=== PATIENT | male | born 1985 | race Caucasian/White ===

== ENCOUNTER 2018-05-06 19:36 | Emergency (ER) | payer OTHER, SELFPAY ==
[2018-05-06] VITALS (38 sets, daily range): BP systolic 108–142; BP diastolic 60–86; PULSE 72–107; RESP 11–22; TEMP 36.5; O2SAT 90–99
--- NOTE | 2018-05-06 19:54 | DI.COMBO_ITS ---
SYMPTOM/DIAGNOSIS: FELL FROM 25 FEET, RT SIDED PAIN, TRAUMA NONCONTRAST HEAD CT: No priors for comparison. There is a normal burciaga white matter differentiation. The ventricles are intact. The basilar cisterns are patent. There is no acute midline shift or mass effect. No intracranial hemorrhage or infarct is seen. There is a mucus retention cyst or polyp in the left maxillary sinus. The remaining visualized paranasal sinuses are clear. The mastoid air cells are well pneumatized. The calvarium is intact. IMPRESSION: No acute intracranial process. CERVICAL SPINE CT: Multiple contiguous axial images of the cervical spine were obtained. Sagittal and coronal reformatted images were evaluated on the Siemens work station. There is normal alignment of the cervical spine. No acute fractures or subluxations are seen. The soft tissues are unremarkable. The visualized lung apices are clear. IMPRESSION: No acute fracture or subluxation in the cervical spine. CHEST/ABDOMEN AND PELVIC CT: CT scan of the abdomen and pelvis was performed following the uneventful administration of intravenous contrast material. There are no priors for comparison. The liver, spleen, pancreas, gallbladder, bile ducts, adrenal glands, kidneys, ureters and bladder are unremarkable. The reproductive organs are unremarkable. The bowel is unremarkable. The aorta is of normal caliber. No significant abdominal or pelvic adenopathy, ascites or pneumoperitoneum is present. No acute fracture is seen. There is subcutaneous edema in the soft tissues of the right lateral pelvis. IMPRESSION: No evidence of intra-abdominal or pelvic organ injury or fracture. Mild subcutaneous edema adjacent to the right pelvis. CT scan of the chest was performed. The thoracic aorta is normal in caliber. Heart size is within normal limits. No significant pericardial effusion is present. No significant mediastinal or hilar adenopathy is seen. No pleural effusion or pneumothorax is identified. Mild dependent atelectatic changes are seen in the lungs. No focal consolidating infiltrate is seen. The tracheobronchial tree is unremarkable. No displaced fractures are identified. IMPRESSION: No acute thoracic injury. RIGHT WRIST: Three views. There is a comminuted, intra-articular fracture involving the distal right radius. The fracture begins in the proximal metadiaphyseal region and extends into the radiocarpal joint. There is impaction of the fracture noted with mild displacement. There is a comminuted displaced fracture involving the ulnar styloid process. Soft tissue swelling is seen about the wrist. IMPRESSION: Comminuted fractures involving the distal right radius and ulna as described.
--- NOTE | 2018-05-06 19:57 | W.ED.GENAD ---
Discharge Plan Disposition Patient Disposition: HOME Condition: Fair Discharge Details Chief Complaint: Trauma Clinical Impression: Closed fracture distal radius and ulna, Multiple contusions ED Provider: Nga Reardon Home Meds and New Rx's Prescriptions: New naloxone [Narcan] 4 mg/actuation spray,non-aerosol 1 spray SRINIVASA ONCE PRN (Reason: opioid overdose) Qty: 2 RF: 0 No Action ibuprofen [Advil] 200 MG tablet 400 mg PRN PRNRF: 0 ibuprofen 800 mg Tablet 800 mg PO TID RF: 0 oxycodone-acetaminophen [Percocet] 5-325 mg Tablet 1 tab PO Q6H RF: 0 Discharge Instructions Instructions: Wrist Fracture in Adults (ED), Contusion in Adults (ED) Additional Instructions: Encourage rest, ice, elevation. You may use 1000 mg of Tylenol every 6 hours as needed, no more than 4000 mg daily. You may augment this with 600 mg of ibuprofen every 6 hours. Please take oxycodone as prescribed. Keep this in a safe place. Encourage hydration. Gentle stretching and frequent ambulation up with contusions and muscle tightness. Please keep splint on until evaluated by orthopedics. Please call orthopedics Tuesday morning to schedule follow-up appointment. If you develop any new or worsening symptoms please seek care urgently once again Referrals: Yung Tom MD [ [facility] STAFF PHYSICIAN] - ([phone]) Discharge Data Discharge Date/Time-TO BE ENTERED AT DEPARTURE: 05/07/18 00:44 Medical Decision Making Patient a 32-year-old male presenting today with chief complaint of trauma. Reports that approximately 3 hours prior to arrival he was working in a tree. States that he was cutting trees at his home. The first 3 that he had cut got hung up on another reports that he was then in the tree trying to free it when the tree released and he fell approximately 25 feet with a tree on the ground. Landed primarily on the right side. No loss conscious. Denies any headache. Denies any visual changes. Is endorsing pain, lightheadedness chest, abdomen and pelvis. Has a notable ecchymosis and abrasion to the right side of his hip, abdomen and lateral aspect of the right knee. Patient also has deformity to the right wrist reports he has been unable to move the area. Denies any altered sensation. Denies any pain in his neck. No pain in his back. On exam, patient is exquisitely tender on the abdomen and right lateral side of the chest wall. I am concerned for possible intra-abdominal and intrathoracic trauma. Patient will immediately go to CT. Patient will be given fentanyl to help with discomfort. X-ray of the patient's right wrist is significant for) acute, comminuted fracture distal right radial epiphysis and distal diaphyseal region. Fracture extends into the right radiocarpal angulation. Closed, acute, fracture of the right ulnar styloid. Right wrist soft tissue swelling noted. CT of the patient's head reviewed by radiologist. No hemorrhage. No significant white matter disease. No edema. No ventriculomegaly. No acute fracture. Left inferior maxillary sinus retention cyst. Mastoid air cells are normal. CT of the cervical spine reviewed by radiologist. No acute fracture or subluxation. No spinal stenosis or neuroforaminal narrowing. Soft tissues are unremarkable. Bones are normal CT of the chest reviewed by radiologist. Advised lungs are normal no consolidation, no masses. Pleural space is normal with no pneumothorax or pleural effusion. Heart is normal with no cardiomegaly or pericardial effusion. No aortic aneurysm. Lymph nodes are normal no murmurs lymph nodes. No acute fracture. Soft tissue unremarkable CT of the patient's abdomen and pelvis reviewed by radiology. Liver is normal no mass. Gallbladder is normal no calcified stones or ductal dilation. No ductal dilation of the pancreas, pancreas appears normal. Spleen appears normal no splenomegaly. Adrenals normal no mass. Kidneys and ureters are normal with no hydronephrosis. Stomach and bowel normal no obstruction, no mucosal thickening. Appendix is normal no appendicitis. Bladder and reproductive unremarkable as visualized. Intraperitoneal space normal with no free air or significant fluid collection. Bones and joints are normal with no acute fracture. Lateral right pelvic subcutaneous edema. Small fat-containing umbilical hernia. Sutures normal no abdominal aortic aneurysm. Lymph nodes are normal no enlarged lymph nodes Laboratory evaluation is notable for leukocytosis of 14. This likely associated with acute trauma. Discussed finding with the patient. We discussed fracture in depth. I advised that this will likely need surgical consultation. We will splint this tonight. Encourage rest, ice, elevation. No opening the skin at this point. Splint was placed with myself with plaster. Patient tolerated this well. He remains neurovascularly intact Patient's remaining areas of trauma seem consistent with abrasions and contusions. I did encourage deep breathing as the patient does have contusions of the chest wall. Advised heat or ice to affected areas. I encouraged gentle stretching and gentle ambulation. Advise follow-up with orthopedics, he will contact them tomorrow to schedule follow-up appointment. Patient was placed on the fracture list. Advised Tylenol and/or ibuprofen as needed for discomfort. Patient will also be prescribed oxycodone to help with his acute discomfort. We did discuss the risk/benefits of this medication. In particular, as the patient has multiple children advised to keep this in a safe place. Patient did sign a narcotic form. Given the number of medications I am prescribing, will also prescribe Narcan. We discussed new/worsening symptoms when to seek care urgently once again. All of his questions and concerns were addressed and he is in agreement this HPI General Mode of arrival: wheelchair. Date/Time Provider Initiated Documentation: 05/06/18 19:53. Limitations to Documentation: no limitations. Information obtained by: patient. History of Present Illness 32 year old M presents to the emergency department with the chief complaint of right sided pain after fall, described as severe, with intensity rated at 10. Quality is described as stabbing and aching, and is localized to the chest, back, abdomen, pelvis, right and upper extremity. Patient started experiencing this minute(s) and it has been constant. No relieving factors improve symptom(s), Movement worsens symptoms . Patient notes denies chest pain, cough, fever/chills, headaches, malaise, nausea/vomiting, shortness of breath, syncope and weakness. Patient did receive the following treatments prior to arrival, none Related Data Home Medications Medication Instructions Recorded Confirmed ibuprofen [Advil] 400 mg PRN PRN 01/20/15 05/25/18 naloxone [Narcan] 1 spray SRINIVASA ONCE PRN #2 each 05/06/18 05/25/18 ibuprofen 800 mg PO TID 05/11/18 05/25/18 oxycodone-acetaminophen [Percocet] 1 tab PO Q6H 05/11/18 05/25/18 Previous Rx's Medication Instructions Recorded naloxone [Narcan] 1 spray SRINIVASA ONCE PRN #2 each 05/06/18 Allergies Allergy/AdvReac Type Severity Reaction Status Date / Time No Known Allergies Allergy Unverified 05/25/18 09:39 Review of Systems Constitutional Reports as per HPI, Reports body ache(s), Denies chills, Denies fever(s), Denies frequent falls, Denies headache(s) and Reports weakness (RUE) Eyes Denies change in vision and Denies diplopia ENT Denies headache(s) Cardiovascular Denies syncope, Denies palpitations and Denies dyspnea Respiratory Denies cough, Denies dyspnea, Denies stridor and Denies wheezing Gastrointestinal Reports abdominal pain (epigastric), Denies nausea and Denies vomiting Genitourinary Denies urinary incontinence Musculoskeletal Reports as per HPI, Denies numbness and Denies tingling Integumentary/Breasts Reports as per HPI Neurologic Denies syncope, Denies frequent falls, Denies headache(s), Denies numbness, Denies tingling, Denies paresthesias and Reports weakness (RUE) Endocrine Denies palpitations Allergic/Immunologic Denies wheezing [facility] Social History Smoking/Tobacco Use Status: Never Exam Const General: cooperative, healthy appearing, uncomfortable (patient is rolled slightly to the left side, splinting the right side), well developed and well groomed Nutritional Appearance: average body habitus and well nourished Orientation: alert, awake and oriented x3 Limitations: mental status not altered and no behavioral limitations [facility] Head: normal to inspection, no palpable skull fracture, normocephalic, atraumatic, no Canales's sign, no raccoon eyes and no scalp tenderness Ears: hearing grossly normal bilaterally, external ears normal and TM's normal bilaterally General nose exam: external nose normal Eyes General: appearance normal, both eyes and all related structures Alignment and Position: alignment normal Periorbital: periorbital findings normal Conjunctivae: conjunctivae normal Pupils: PERRL EOM: EOM intact bilaterally and No nystagmus Direct ophthalmoscopy: normal light reflex Neck Neck: not normal to visual inspection (Patient is currently in c-collar) Chest Chest: abnormal inspection of the chest (Patient has abrasions to the anterior aspect of the right side of his chest as well as associated ecchymosis. No palpable deformity. He does have discomfort over this area with palpation) and no localized rib tenderness Resp Effort & Inspection: normal respiratory effort, able to speak in complete sentences and no respiratory distress Auscultation: clear to auscultation bilaterally, no rales, no rhonchi and no wheezes Cardio Rate: regular rate Rhythm: regular rhythm Heart Sounds: S1 normal and S2 normal GI Inspection: normal to inspection, no abdominal wall ecchymosis, no edema and non-distended Palpation: soft, no hepatosplenomegaly, firm, no guarding, no masses, not rigid and tender in the epigastrum; not in the RUQ and not at McBurney's point Auscultation: normal bowel sounds Back/Spine/Pelvis Back: No no CVA tenderness (collar in place) Thoracic/Lumbar Spine: thoracic and lumbar spine normal to inspection, pain with thoraco-lumbar ROM (this causes right lateral chest wall pain), No paraspinal tenderness, No thoracic spinal tenderness and No lumbar spinal tenderness Pelvis: no pain with anterior-posterior compression, no pain with lateral compression, no buttock ecchymosis and no buttock tenderness Sacrum: no ecchymosis and no erythema Coccyx: no swelling and no tenderness Skin Trauma: abrasion (multiple areas of ecchymosis and abrasio nover the right side of the chest wall, right shoulder. ) Neuro General: alert, awake and oriented x3 Cranial Nerves: CN's II-XI intact bilaterally, PERRL, accommodation normal, EOM intact bilaterally, no nystagmus, facial strength normal, tongue midline, hearing normal, able to elevate shoulders bilaterally and no nystagmus Cognition: normal cognition Speech: speech normal Gait: normal gait Motor: muscle tone normal throughout, strength 5/5 throughout, no pronator drift and no movement abnormalities noted Sensory Exam: no sensory deficits noted Coordination: [id number] test normal, [id number] test normal and rapid alternating movement UE normal Extrem Right upper extremity: wrist (patient has deformity to the right wrist. Skin is ecchymotic. Swelling noted. No snuff box tenderness) Details: tenderness, swelling, abnormal ROM and ecchymosis; ROM abnormal, no unusual warmth and no lacerations Psych Appearance: grossly normal and well kempt Mental Status: mental status grossly normal Speech and Movement: speech and movement normal Mood: congruent mood Affect: normal affect
--- NOTE | 2018-05-06 20:03 | ED.GENADUL_ITS ---
Discharge Plan Disposition Patient Disposition: HOME Condition: Fair Discharge Details Chief Complaint: Trauma Clinical Impression: Closed fracture distal radius and ulna, Multiple contusions ED Provider: Nga Reardon Home Meds and New Rx's Prescriptions: New naloxone [Narcan] 4 mg/actuation spray,non-aerosol 1 spray SRINIVASA ONCE PRN (Reason: opioid overdose) Qty: 2 RF: 0 No Action ibuprofen [Advil] 200 MG tablet 400 mg PRN PRNRF: 0 ibuprofen 800 mg Tablet 800 mg PO TID RF: 0 oxycodone-acetaminophen [Percocet] 5-325 mg Tablet 1 tab PO Q6H RF: 0 Discharge Instructions Instructions: Wrist Fracture in Adults (ED), Contusion in Adults (ED) Additional Instructions: Encourage rest, ice, elevation. You may use 1000 mg of Tylenol every 6 hours as needed, no more than 4000 mg daily. You may augment this with 600 mg of ibuprofen every 6 hours. Please take oxycodone as prescribed. Keep this in a safe place. Encourage hydration. Gentle stretching and frequent ambulation up with contusions and muscle tightness. Please keep splint on until evaluated by orthopedics. Please call orthopedics Tuesday morning to schedule follow-up appointment. If you develop any new or worsening symptoms please seek care urgently once again Referrals: Yung Tom MD [ [facility] STAFF PHYSICIAN] - ([phone]) Discharge Data Discharge Date/Time-TO BE ENTERED AT DEPARTURE: 05/07/18 00:44 Medical Decision Making Patient a 32-year-old male presenting today with chief complaint of trauma. Reports that approximately 3 hours prior to arrival he was working in a tree. States that he was cutting trees at his home. The first 3 that he had cut got hung up on another reports that he was then in the tree trying to free it when the tree released and he fell approximately 25 feet with a tree on the ground. Landed primarily on the right side. No loss conscious. Denies any headache. Denies any visual changes. Is endorsing pain, lightheadedness chest, abdomen and pelvis. Has a notable ecchymosis and abrasion to the right side of his hip , abdomen and lateral aspect of the right knee. Patient also has deformity to the right wrist reports he has been unable to move the area. Denies any altered sensation. Denies any pain in his neck. No pain in his back. On exam , patient is exquisitely tender on the abdomen and right lateral side of the chest wall. I am concerned for possible intra-abdominal and intrathoracic trauma. Patient will immediately go to CT. Patient will be given fentanyl to help with discomfort. X-ray of the patient's right wrist is significant for) acute, comminuted fracture distal right radial epiphysis and distal diaphyseal region. Fracture extends into the right radiocarpal angulation. Closed, acute, fracture of the right ulnar styloid. Right wrist soft tissue swelling noted. CT of the patient's head reviewed by radiologist. No hemorrhage. No significant white matter disease. No edema. No ventriculomegaly. No acute fracture. Left inferior maxillary sinus retention cyst. Mastoid air cells are normal. CT of the cervical spine reviewed by radiologist. No acute fracture or subluxation. No spinal stenosis or neuroforaminal narrowing. Soft tissues are unremarkable. Bones are normal CT of the chest reviewed by radiologist. Advised lungs are normal no consolidation, no masses. Pleural space is normal with no pneumothorax or pleural effusion. Heart is normal with no cardiomegaly or pericardial effusion. No aortic aneurysm. Lymph nodes are normal no murmurs lymph nodes. No acute fracture. Soft tissue unremarkable CT of the patient's abdomen and pelvis reviewed by radiology. Liver is normal no mass. Gallbladder is normal no calcified stones or ductal dilation. No ductal dilation of the pancreas, pancreas appears normal. Spleen appears normal no splenomegaly. Adrenals normal no mass. Kidneys and ureters are normal with no hydronephrosis. Stomach and bowel normal no obstruction, no mucosal thickening. Appendix is normal no appendicitis. Bladder and reproductive unremarkable as visualized. Intraperitoneal space normal with no free air or significant fluid collection. Bones and joints are normal with no acute fracture. Lateral right pelvic subcutaneous edema. Small fat-containing umbilical hernia. Sutures normal no abdominal aortic aneurysm. Lymph nodes are normal no enlarged lymph nodes Laboratory evaluation is notable for leukocytosis of 14. This likely associated with acute trauma. Discussed finding with the patient. We discussed fracture in depth. I advised that this will likely need surgical consultation. We will splint this tonight. Encourage rest, ice, elevation. No opening the skin at this point. Splint was placed with myself with plaster. Patient tolerated this well. He remains neurovascularly intact Patient's remaining areas of trauma seem consistent with abrasions and contusions. I did encourage deep breathing as the patient does have contusions of the chest wall. Advised heat or ice to affected areas. I encouraged gentle stretching and gentle ambulation. Advise follow-up with orthopedics, he will contact them tomorrow to schedule follow-up appointment. Patient was placed on the fracture list. Advised Tylenol and/or ibuprofen as needed for discomfort. Patient will also be prescribed oxycodone to help with his acute discomfort. We did discuss the risk/benefits of this medication. In particular, as the patient has multiple children advised to keep this in a safe place. Patient did sign a narcotic form. Given the number of medications I am prescribing, will also prescribe Narcan. We discussed new/worsening symptoms when to seek care urgently once again. All of his questions and concerns were addressed and he is in agreement this HPI General Mode of arrival: wheelchair . Date/Time Provider Initiated Documentation: 05/06/18 19:53 . Limitations to Documentation: no limitations . Information obtained by: patient . History of Present Illness 32 year old M presents to the emergency department with the chief complaint of right sided pain after fall, described as severe, with intensity rated at 10. Quality is described as stabbing and aching, and is localized to the chest, back, abdomen, pelvis, right and upper extremity. Patient started experiencing this minute(s) and it has been constant. No relieving factors improve symptom(s), Movement worsens symptoms . Patient notes denies chest pain, cough, fever/chills, headaches, malaise, nausea/vomiting, shortness of breath, syncope and weakness. Patient did receive the following treatments prior to arrival, none Related Data Home Medications Medication Instructions Recorded Confirmed ibuprofen [Advil] 400 mg PRN PRN 01/20/15 05/25/18 naloxone [Narcan] 1 spray SRINIVASA ONCE PRN #2 each 05/06/18 05/25/18 ibuprofen 800 mg PO TID 05/11/18 05/25/18 oxycodone-acetaminophen [Percocet] 1 tab PO Q6H 05/11/18 05/25/18 Previous Rx's Medication Instructions Recorded naloxone [Narcan] 1 spray SRINIVASA ONCE PRN #2 each 05/06/18 Allergies Allergy/AdvReac Type Severity Reaction Status Date / Time No Known Allergies Allergy Unverified 05/25/18 09:39 Review of Systems Constitutional Reports as per HPI, Reports body ache(s), Denies chills, Denies fever(s), Denies frequent falls, Denies headache(s) and Reports weakness (RUE) Eyes Denies change in vision and Denies diplopia ENT Denies headache(s) Cardiovascular Denies syncope, Denies palpitations and Denies dyspnea Respiratory Denies cough, Denies dyspnea, Denies stridor and Denies wheezing Gastrointestinal Reports abdominal pain (epigastric), Denies nausea and Denies vomiting Genitourinary Denies urinary incontinence Musculoskeletal Reports as per HPI, Denies numbness and Denies tingling Integumentary/Breasts Reports as per HPI Neurologic Denies syncope, Denies frequent falls, Denies headache(s), Denies numbness, Denies tingling, Denies paresthesias and Reports weakness (RUE) Endocrine Denies palpitations Allergic/Immunologic Denies wheezing [facility] Social History Smoking/Tobacco Use Status: Never Exam Const General: cooperative, healthy appearing, uncomfortable (patient is rolled slightly to the left side, splinting the right side), well developed and well groomed Nutritional Appearance: average body habitus and well nourished Orientation: alert, awake and oriented x3 Limitations: mental status not altered and no behavioral limitations [facility] Head: normal to inspection, no palpable skull fracture, normocephalic, atraumatic, no Canales's sign, no raccoon eyes and no scalp tenderness Ears: hearing grossly normal bilaterally, external ears normal and TM's normal bilaterally General nose exam: external nose normal Eyes General: appearance normal, both eyes and all related structures Alignment and Position: alignment normal Periorbital: periorbital findings normal Conjunctivae: conjunctivae normal Pupils: PERRL EOM: EOM intact bilaterally and No nystagmus Direct ophthalmoscopy: normal light reflex Neck Neck: not normal to visual inspection (Patient is currently in c-collar) Chest Chest: abnormal inspection of the chest (Patient has abrasions to the anterior aspect of the right side of his chest as well as associated ecchymosis. No palpable deformity. He does have discomfort over this area with palpation) and no localized rib tenderness Resp Effort & Inspection: normal respiratory effort, able to speak in complete sentences and no respiratory distress Auscultation: clear to auscultation bilaterally, no rales, no rhonchi and no wheezes Cardio Rate: regular rate Rhythm: regular rhythm Heart Sounds: S1 normal and S2 normal GI Inspection: normal to inspection, no abdominal wall ecchymosis, no edema and non -distended Palpation: soft, no hepatosplenomegaly, firm, no guarding, no masses, not rigid and tender in the epigastrum; not in the RUQ and not at McBurney's point Auscultation: normal bowel sounds Back/Spine/Pelvis Back: No no CVA tenderness (collar in place) Thoracic/Lumbar Spine: thoracic and lumbar spine normal to inspection, pain with thoraco-lumbar ROM (this causes right lateral chest wall pain), No paraspinal tenderness, No thoracic spinal tenderness and No lumbar spinal tenderness Pelvis: no pain with anterior-posterior compression, no pain with lateral compression, no buttock ecchymosis and no buttock tenderness Sacrum: no ecchymosis and no erythema Coccyx: no swelling and no tenderness Skin Trauma: abrasion (multiple areas of ecchymosis and abrasio nover the right side of the chest wall, right shoulder. ) Neuro General: alert, awake and oriented x3 Cranial Nerves: CN's II-XI intact bilaterally, PERRL, accommodation normal, EOM intact bilaterally, no nystagmus, facial strength normal, tongue midline, hearing normal, able to elevate shoulders bilaterally and no nystagmus Cognition: normal cognition Speech: speech normal Gait: normal gait Motor: muscle tone normal throughout, strength 5/5 throughout, no pronator drift and no movement abnormalities noted Sensory Exam: no sensory deficits noted Coordination: [id number] test normal, [id number] test normal and rapid alternating movement UE normal Extrem Right upper extremity: wrist (patient has deformity to the right wrist. Skin is ecchymotic. Swelling noted. No snuff box tenderness) Details: tenderness, swelling, abnormal ROM and ecchymosis; ROM abnormal, no unusual warmth and no lacerations Psych Appearance: grossly normal and well kempt Mental Status: mental status grossly normal Speech and Movement: speech and movement normal Mood: congruent mood Affect: normal affect
[2018-05-06 20:09] LABS: Abs Immature Grans 0.13 k/cumm (0.0-0.09); Absolute Basophil Count 0.04 k/cumm (0.0-0.2); Absolute Eosinophil Count 0.09 k/cumm (0.0-0.7); Absolute Monocyte Count 0.83 k/cumm (0.11-0.7); Basophils % 0.3; Eosinophils % 0.6; HCT 41.8 % (40.0-50.0); Immature Grans % 0.9; Lymphocytes % 13.3; Mean Corp. HGB Concentration 33.5 g/dL (32.0-36.0); Mean Corpuscular Hemoglobin 31.3 pg (27.0-33.0); Mean Corpuscular Volume 93.3 fL (80-95); Mean Platelet Volume 9.4 fL (8.0-11.0); Monocytes % 5.8; Neutrophils % 79.1; Platelet Count 268 x1000/uL (130-400); RBC 4.48 m/cumm (4.50-6.00); RBC Distribution Width 12.6 % (11.8-14.1); White Blood Cell Count 14.25 k/cumm (4.4-10.8)
[2018-05-06 20:13] LABS: Absolute Neutrophil Count 11.27 k/cumm (1.2-6.7)
[2018-05-06 20:21] LABS: ALT 43 U/L (12-78); AST 31 U/L (15-37); Albumin 4.3 g/dL (3.4-5.0); Alkaline Phosphatase 77 U/L (46-116); Anion Gap 10.7 mmol/L (3-11); BUN 16 mg/dL (7-18); Bilirubin, Total 0.3 mg/dL (0.2-1.0); CO2 25.3 mmol/L (21.0-32.0); CREATININE 0.93 mg/dL (0.70-1.30); Calcium 8.6 mg/dL (8.5-10.1); Chloride 102 mmol/L (98-107); Glucose 118 mg/dL (70-100); Magnesium 2.2 mg/dL (1.8-2.4); Potassium 3.8 mmol/L (3.5-5.1); Sodium 138 mmol/L (136-145); Total Protein 7.8 g/dL (6.4-8.2)
[2018-05-06 20:30] LABS: Troponin I < 0.02 ng/mL (0.00-0.06)
[2018-05-06] MEDS: Normal Saline 1,000 ML 1000 ML IV ×2 (20:35→23:43)
[2018-05-06] MEDS: fentaNYL 100 MCG/2 ML VIAL IVP (20:45)
--- NOTE | 2018-05-06 20:45 | DI.VRAD_ITS ---
EXAM: CT Chest With Intravenous Contrast EXAM DATE/TIME: 05/06/2018 7:55 PM CLINICAL HISTORY: 32 years old, male; Injury or trauma; Injury details: Fall from 25 ft TECHNIQUE: Axial computed tomography images of the chest with intravenous contrast. Coronal and sagittal reformatted images were created and reviewed. COMPARISON: No relevant prior studies available. FINDINGS: Lungs: Normal. No consolidation. No masses. Pleural space: Normal. No pneumothorax. No pleural effusion. Heart: Normal. No cardiomegaly. No pericardial effusion. Aorta: Normal. No aortic aneurysm. Lymph nodes: Unremarkable. No enlarged lymph nodes. Bones/joints: No acute fracture. Soft tissues: Unremarkable. IMPRESSION: 1. No acute fracture. 2. No acute intrathoracic findings. EXAM: CT Abdomen and Pelvis With Intravenous Contrast EXAM DATE/TIME: 05/06/2018 7:55 PM CLINICAL HISTORY: 32 years old, male; Injury or trauma; Fall from 25 ft TECHNIQUE: Axial computed tomography images of the abdomen and pelvis with intravenous contrast. Coronal and sagittal reformatted images were created and reviewed. COMPARISON: No relevant prior studies available. FINDINGS: Lower thorax: No acute findings. ABDOMEN: Liver: Normal. No mass. Gallbladder and bile ducts: Normal. No calcified stones. No ductal dilation. Pancreas: Normal. No ductal dilation. Spleen: Normal. No splenomegaly. Adrenals: Normal. No mass. Kidneys and ureters: Normal. No hydronephrosis. Stomach and bowel: Normal. No obstruction. No mucosal thickening. Appendix: No evidence of appendicitis. PELVIS: Bladder: Unremarkable as visualized. Reproductive: Unremarkable as visualized. ABDOMEN and PELVIS: Intraperitoneal space: Normal. No free air. No significant fluid collection. Bones/joints: No acute fracture. Soft tissues: Lateral right pelvic subcutaneous edema. Small fat-containing umbilical hernia. Vasculature: Normal. No abdominal aortic aneurysm. Lymph nodes: Normal. No enlarged lymph nodes. IMPRESSION: 1. No acute fracture. 2. Lateral right pelvic subcutaneous edema. 3. No acute intra-abdominal or pelvic findings. Dictated and Authenticated by: Kade Pantoja MD. Ordering:VINH CARBONE MD
--- NOTE | 2018-05-06 20:48 | DI.VRAD_ITS ---
EXAM: XR Right Wrist Complete, 3 or more Views EXAM DATE/TIME: 05/06/2018 8:03 PM CLINICAL HISTORY: 32 years old, male; Fall from 25 ft, right wrist pain TECHNIQUE: XR Right wrist 3 or more views. COMPARISON: No relevant prior studies available. FINDINGS: Bones/joints: Closed, acute, comminuted fracture of the distal right radial epiphysis and distal metadiaphyseal region. Fracture extends into the right radiocarpal articulation. Closed, acute, fracture of the right ulnar styloid. Soft tissues: Distal right forearm / right wrist soft tissue swelling. IMPRESSION: 1. Closed, acute, comminuted fracture of the distal right radial epiphysis and distal metadiaphyseal region. Fracture extends into the right radiocarpal articulation. 2. Closed, acute, fracture of the right ulnar styloid. 3. Distal right forearm / right wrist soft tissue swelling. Dictated and Authenticated by: Kade Pantoja MD. Ordering:VINH CARBONE MD
--- NOTE | 2018-05-06 21:00 | DI.VRAD_ITS ---
EXAM: CT Head Without Intravenous Contrast EXAM DATE/TIME: 05/06/2018 7:55 PM CLINICAL HISTORY: 32 years old, male; Injury or trauma; Initial encounter; Fall from 25 ft TECHNIQUE: Axial computed tomography images of the head/brain without intravenous contrast. Coronal and sagittal reformatted images were created and reviewed. COMPARISON: No relevant prior studies available. FINDINGS: Brain: Normal. No hemorrhage. No significant white matter disease. No edema. Ventricles: Normal. No ventriculomegaly. Bones/joints: Normal. No acute fracture. Sinuses: Inferior left maxillary sinus retention cyst. Mastoid air cells: Normal as visualized. No mastoid effusion. Soft tissues: Normal. IMPRESSION: 1. No acute intracranial findings. 2. No acute fracture. EXAM: CT Cervical Spine Without Intravenous Contrast EXAM DATE/TIME: 05/06/2018 7:55 PM CLINICAL HISTORY: 32 years old, male; Injury or trauma; Initial encounter; Fall from 25 ft TECHNIQUE: Axial computed tomography images of the cervical spine without intravenous contrast. Coronal and sagittal reformatted images were created and reviewed. COMPARISON: No relevant prior studies available. FINDINGS: Vertebrae: No acute fracture. No subluxation. Discs/Spinal canal/Neural foramina: No spinal stenosis. No neural foraminal narrowing. Soft tissues: Unremarkable. Lungs: Normal. IMPRESSION: No acute fracture or subluxation. Dictated and Authenticated by: Kade Pantoja MD. Ordering:VINH CARBONE MD
[2018-05-06] MEDS: Omnipaque 350 MG/ML 100 ML BTL IJ (21:06)
[2018-05-06] MEDS: HYDROmorphone 2 MG/ML VIAL 1 MG IVP ×2 (21:20→21:44)
[2018-05-06] MEDS: oxyCODONE 5 mg/Acetaminophen 325 mg TAB 4 TAB (23:33)
[2018-05-07] VITALS: O2SAT 98
[2018-05-07 00:01] VITALS: BP 124/77; PULSE 73; O2SAT 97
[2018-05-07 00:05] VITALS: BP 127/80; PULSE 78; O2SAT 98
== END 2018-05-07 00:44 | disposition home or self-care (01) ==
LOC: ER 05-07 00:20
PROVIDERS: Emergency Provider Physician Assistant
DX: S59.291A Other physeal fracture of lower end of radius, right arm, initial encounter for closed fracture (principal); S52.614A Nondisplaced fracture of right ulna styloid process, initial encounter for closed fracture; S20.311A Abrasion of right front wall of thorax, initial encounter; S40.211A Abrasion of right shoulder, initial encounter; R10.9 Unspecified abdominal pain; R07.89 Other chest pain; R51 Headache; W17.89XA Other fall from one level to another, initial encounter
CPT/HCPCS: 25600; 36415; 74177; 80053; 86850; 86900; 86901; 96361; 96374; 96375; 96376; 99285; 70450; 71260; 72125; 73110; 83735; 84484; 85025; 99284; J3010; J3490

== ENCOUNTER 2018-05-11 11:04 | Day surgery (SDC) | payer OTHER, SELFPAY ==
[2018-05-11] VITALS (11 sets, daily range): BP systolic 121–146; BP diastolic 65–99; PULSE 70–102; RESP 12–16; TEMP 36.6–37.2; O2SAT 95–98
[2018-05-11] MEDS: Lactated Ringers 1,000 ML 80 ML IV ×2 (11:45→15:30)
--- NOTE | 2018-05-11 12:01 | DI.RAD_ITS ---
SYMPTOMS/DIAGNOSIS: RT WRIST FX FLUOROSCOPY OF THE RIGHT WRIST: Fluoroscopy Time: .27 seconds 0.1366 gMy Fluoroscopy was provided in the OR for Dr. Tom. Hardcopy images show placement of a fixation plate along the distal radius for fixation of the previously noted comminuted intra-articular fracture. An ulnar styloid fracture is also visible which appears unchanged.
[2018-05-11] MEDS: fentaNYL 100 MCG/2 ML VIAL IVP ×2 (16:26→16:37)
[2018-05-11] MEDS: HYDROmorphone 2 MG/ML VIAL IVP (16:36)
[2018-05-11] MEDS: Normal Saline Flush 10 ML SYR IV (16:36)
--- NOTE | 2018-05-11 16:50 | DI.RAD_ITS ---
SYMPTOM/DIAGNOSIS: F/U, S/P SURGERY PORTABLE RIGHT WRIST: Comparison is made with intraoperative images performed earlier the same day. Hard copy images show a ventral splint. A fixation plate has been placed across the distal radius for fixation of the previously noted comminuted intra- articular fracture. An ulnar styloid fracture is also seen.
[2018-05-11] MEDS: oxyCODONE 5 mg/Acetaminophen 325 mg TAB 1 TAB PO (17:04)
[2018-05-11] MEDS: oxyCODONE-CR 10 MG TABCR PO (17:04)
--- NOTE | 2018-05-12 08:35 | ROE_ITS ---
REPORT OF OPERATIVE PROCEDURE DATE OF PROCEDURE May 11, 2018 PREOPERATIVE DIAGNOSES Comminuted, displaced, intraarticular fracture of the distal radius and ulnar on the right. POSTOPERATIVE DIAGNOSES Comminuted, displaced, intraarticular fracture of the distal radius and ulnar on the right. PROCEDURE Open reduction and internal fixation comminuted intraarticular fracture distal radius and ulnar stylo id on the right using volar plate fixation, and application with short-arm volar fiberglass splint. ANESTHESIA General, Sandra Alicea C.R.N.A. SURGEON Yung Tom M.D. TRAUMA NURSE JOHNATHON Jacob INDICATIONS This is a 32-year-old white male who fell from a height while working on his [employer] home on 05/06. He was seen in the Emergency Room and noted to have a displaced comminuted intraarticular frac ture distal radius and ulnar styloid. There was marked shortening of the distal radius seen. Open red uction internal fixation was recommended as optimum treatment to restore the best possible function t o his right wrist. The risks and complications of the procedure were explained to the patient in det ail preoperatively. The patient wished to proceed as soon as possible. DESCRIPTION OF PROCEDURE The patient was taken to the Operating Room on 05/11/2018. He was placed supine on the Operating tabl e. A General anesthetic was administered. A proximal tourniquet was applied to the right upper arm, and the volar splint was removed. There was noted to be pieces of grass and a lot of dirt in his palm and between his fingers. I thoroughly washed it with Chlorhexidine Prep soap. I then prepped the turcios d and the forearm to just below the elbow and draped the arm free in usual sterile fashion. The arm w as exsanguinated by elevation for 2 minutes and then a tourniquet was inflated to 325 mmHg. A longit udinal incision was made over the Flexor carpi radialis tendon and carried distally in a zigzag fashi on across the distal palmar flexion creases. Proximally, the incision was extended 4 to 5 inches. Th e incision was carried down to the flexor carpi radialis tendon. Subcutaneous veins were cauterized. An incision was made on the radial side of the Flexor carpi radialis tendon through the sheath the of the flexor carpi radialis directly down to bone of the distal radius. Pronator muscle was incised do wn to bone. The brachioradialis was released. The pronator muscle was reflected from the volar surfac e of the radius with a periosteal elevator. On the ulnar side of the radius, there was a fracture fra gment that was displaced almost completely dorsally. This fragment was manipulated back into its francisca omic position restoring the normal anatomy of the volar proximal radius. The fracture was reduced, pr ovisionally fixed and then a volar locking plate was applied with four holes for the diaphysis and fo ur holes across for the metaphysis. With the help of the mini C-arm image intensifier, the plate was adjusted to the desired position. The plate was provisionally fixed with a 2.7 nonlocking through the sliding hole. The screw was loose and the plate was adjusted in the proximal distal position until i t was in the desired position confirmed with mini C-arm image intensifier. The screw was then ursula lly tightened at this point. The distal row of the plate was then used with a variable locking screw to fix the distal metaphyseal fragment. Using a mini C-arm image intensifier, the screws were positio xochitl so they were supporting the subchondral bone of the distal radius and did not violate the wrist j oint. The carrying angle of the distal radius was restored as was radial length. The screws with size d so they were 2 mm short of the dorsal cortex. I was then able to transfix the radial styloid fractu re fragment with the most radial hole in the plate and the fragment was fixed with a locking 2.3 janene ical screw. I then completed a fixation with two more screws proximal to the fracture of 2.7 nonlocki ng. A final check with the C-arm image intensifier showed the fracture was out to length. No step-off was seen of the subchondral bone of the distal radius and the carrying angle of the distal radius wa s restored to at least 0 degrees to -5 degrees on the lateral view. The wound was then irrigated with Betadine and saline solution. The wound margins were infiltrated with 0.5% Marcaine with epinephri ne solution and the median nerve was minimally exposed and then a median nerve block was performed wi th 0.5% Marcaine with epinephrine solution. The pronator fascia was approximated to cover the plate w ith interrupted [id number] sutures of #3-0 Vicryl suture material. The subcu was approximated wi th interrupted #2-0 Vicryl sutures. The skin edges were approximated with interrupted #4-0 Nylon sutu res. The wound was dressed with Xeroform gauze, sterile gauze 4 x 4s, ABD Pads, wrapped with Kerlix b andage. A short-arm volar fiberglass splint was then applied with a 3-inch Bi bandage. The tourniquet was released after applying the splint. There was no breakthrough bleeding to the dres sings. The patient tolerated the procedure well. His anesthesia was reversed without complication. ESTIMATED BLOOD LOSS: Blood loss was minimal due to the tourniquet use. The patient was discharged home from the Day Surgery unit fully recovered from his general anesthesia . He was given instructions to elevate his right hand above heart level as much as possible for the next 48 hours. He is encouraged to bend and straighten his fingers 10 times an hour while awake to pr event stiffness and swelling. He is to keep the splint and dressings dry and intact until he follows up in my office in one week. He is advised that his fingers on the right hand may stay numb for up to 24 hours due to the nerve block I put in to decrease postoperative pain. He is given a prescription for inflammation and swelling of ibuprofen 800 mg p.o. t.i.d. and he is given a prescription for sanjeev kthrough pain of Percocet 5/325 1 tablet every 6 hours as needed.
== END 2018-05-11 18:22 | disposition home or self-care (01) ==
LOC: SUR 11:06
PROVIDERS: Visit Provider Orthopaedic Surgery
PROC: (CPT 25608; principal; 2018-05-11 13:00)
DX: S52.571A Other intraarticular fracture of lower end of right radius, initial encounter for closed fracture (principal); S52.611A Displaced fracture of right ulna styloid process, initial encounter for closed fracture; W17.89XA Other fall from one level to another, initial encounter
CPT/HCPCS: 25608; 25652; 73100; 73110; J0690; J3010; L3650

== ENCOUNTER 2018-05-18 10:57 | Outpatient (CLI) | payer OTHER, SELFPAY ==
--- NOTE | 2018-05-18 10:55 | DI.RAD_ITS ---
SYMPTOMS/DIAGNOSIS: ORIF RT WRIST RIGHT WRIST: Comparison with the previous examination of 05/11. Two views of the wrist were obtained through a volar fiberglass splint. There has been no change in the status of the intra-articular fracture of the distal radius. Volar plate and compression screw device in place.
== END 2018-05-18 11:17 ==
PROVIDERS: Visit Provider Physician Assistant
DX: S52.571D Other intraarticular fracture of lower end of right radius, subsequent encounter for closed fracture with routine healing (principal)
CPT/HCPCS: 73100

== ENCOUNTER 2018-05-25 09:25 | Outpatient (CLI) | payer OTHER, SELFPAY ==
--- NOTE | 2018-05-25 09:16 | DI.RAD_ITS ---
SYMPTOM/DIAGNOSIS: F/U ORIF OF FX RIGHT WRIST: Two views were obtained and show plate and screw fixation of distal radial fracture with no gross interval change in alignment of the fracture fragments in comparison with examination of 05/18.
== END 2018-05-25 09:45 ==
PROVIDERS: Visit Provider Orthopaedic Surgery
DX: S52.571D Other intraarticular fracture of lower end of right radius, subsequent encounter for closed fracture with routine healing (principal)
CPT/HCPCS: 73100

== ENCOUNTER 2018-06-27 09:24 | Outpatient (CLI) | payer OTHER, SELFPAY ==
--- NOTE | 2018-06-27 09:20 | DI.RAD_ITS ---
SYMPTOM/DIAGNOSIS: F/U ORIF RIGHT WRIST: Comparison is made with 18 May 2018. The splint has been removed. There has been no change in the alignment of the comminuted intra-articular fracture of the distal radius or change in hardware alignment. There has been increased healing when compared with the previous exam. The ulnar styloid fracture is unchanged. No new abnormalities are seen.
== END 2018-06-27 09:44 ==
PROVIDERS: Visit Provider Orthopaedic Surgery
DX: S52.611D Displaced fracture of right ulna styloid process, subsequent encounter for closed fracture with routine healing (principal); S52.571D Other intraarticular fracture of lower end of right radius, subsequent encounter for closed fracture with routine healing
CPT/HCPCS: 73100

== ENCOUNTER 2018-08-08 10:08 | Outpatient (CLI) | payer OTHER, SELFPAY ==
--- NOTE | 2018-08-08 10:22 | DI.RAD_ITS ---
SYMPTOM/DIAGNOSIS: F/U ORIF RIGHT WRIST: Three views. Comparison is made with 06/27/18. There is again seen a side plate and screws transfixing the distal right radial fracture. No change in alignment of the orthopedic hardware or fracture components is seen. The displaced ulnar styloid process fracture is unchanged. The bones are osteopenic suggesting decreased use.
== END 2018-08-08 10:28 ==
PROVIDERS: Visit Provider Orthopaedic Surgery
DX: S52.611D Displaced fracture of right ulna styloid process, subsequent encounter for closed fracture with routine healing (principal); S52.501D Unspecified fracture of the lower end of right radius, subsequent encounter for closed fracture with routine healing
CPT/HCPCS: 73110